=== PATIENT | male | born 1975 | race Caucasian/White ===

== ENCOUNTER 2018-11-13 22:36 | Emergency (ER) | payer SELFPAY ==
[~2018-11-13] VITALS: Ht 167.6 cm; Wt 86.5 kg
[~2018-11-13 22:36] MED LIST: IBUP800T48 PO; METH750T93 PO
[2018-11-13 22:40] VITALS: Ht 167.6 cm; Wt 86.5 kg
[2018-11-14] MEDS ORDERED: KETOROLAC 60 MG INJ IM STA (00:06)
[2018-11-14] MEDS ORDERED: METHYLPREDNISOLONE 125 MG INJ IM ONE (00:30)
[2018-11-14 00:35] VITALS: BP 159/104; PULSE 71; RESP 16
== END 2018-11-14 00:37 | disposition home or self-care (01) ==
LOC: FTE 22:36
DX: M62.838 Other muscle spasm (principal)
CPT/HCPCS: 96372; 99284; J1885; J2930